=== PATIENT | male | born 1985 | race Caucasian/White ===

== ENCOUNTER 2022-06-16 17:45 | Inpatient (IN) | payer OTHER, SELFPAY ==
[2022-06-16 17:46] VITALS: BP 124/85; PULSE 90; RESP 16; TEMP 36.1; O2SAT 100; BMI 18.0
[2022-06-16 18:28] VITALS: BP 123/76; PULSE 83; RESP 14; TEMP 36.1; O2SAT 97
--- NOTE | 2022-06-16 18:33 | EX.ED.SAOD ---
HPI History of Present Illness Chief Complaint: Substance Abuse Informant: patient Narrative Narrative: Patient is here for substance abuse treatment/detox. He states he uses heroin/fentanyl. He does inject it. He last injected about 45 minutes ago. He has never had infectious complications. He drinks a fair amount but states he does not think he has any withdrawal symptoms or problems with the alcohol so much. He did go through detox a long time ago and had 7 years clean. He then went through a very rough divorce in 2019 and relapsed. He went through detox then and was clean for about 6 months. He has now been slowly using but his use is really increased in the last couple months. He states he uses almost a gram a day. He has no physical complaints. He denies any chronic medical conditions or chronic medications. PFSH PFS Medical History no medical history Social History Smoking Status: Current every day smoker tobacco type: cigarettes ROS ROS ED Constitutional Constitutional ED: Denies fever(s) or subjective Eyes Eyes: Denies change in vision ENT ENT ED: Denies rhinorrhea or sore throat Cardiovascular Cardiovascular: Denies palpitations Respiratory/Chest Respiratory/Chest: Denies cough Gastrointestinal Gastrointestinal: Denies nausea or vomiting Musculoskeletal Musculoskeletal: Denies myalgias Integumentary Denies rash Neurologic Neurologic: Denies headache(s) Hematologic/Lymphatic Hematologic/Lymphatic: Denies easy bleeding or easy bruising Allergic/Immunologic Allergic/Immunologic ED: Denies urticaria EXAM Physical Exam Narrative Exam Narrative: Patient is awake alert looks very calm and relaxed in bed. Carries on normal conversation. HEENT shows normal mucous membranes. Eyes show no icterus Lungs are clear bilaterally. Heart is regular. There is no murmur gallop rub or tachycardia. Abdomen soft nontender Extremities show no swelling. See below for skin exam. Skin does show injection sites much more on the right forearm than the left. He is right-handed though. None of these look infected but there is localized bruising. Const Vital Signs: 06/16/22 17:46 06/16/22 18:28 Temperature 97.0 F L 97 F L Temperature Source Temporal Temporal Pulse Rate 90 83 Respiratory Rate 16 14 Blood Pressure 124/85 H 123/76 H Blood Pressure Mean 98 91 Pulse Ox 100 97 Oxygen Delivery Method Room Air Room Air MDM MDM MDM Narrative Medical decision making narrative: Discussed case with hospitalist. With the patient's high use and success in the past we will admit him for detox. Discharge Plan Triage Chief Complaint: Substance Abuse ED Provider: Ronald Traylor Dx/Rx/DC Orders Primary Care Provider: NOT,DEFINED Referrals: NOT,DEFINED [Primary Care Provider] - Disposition Disposition: Acute Care Hospital [facility]
--- NOTE | 2022-06-16 18:50 | PCM.HP.STD ---
HPI - General General Date of Admission: 06/16/22 Date of Service: 06/16/22 Chief Complaint: Opiate detox HPI Narrative AGUSTIN SALCEDO, is a 36 M who presents to the emergency room at [facility] requesting services for opiate detox. Patient injects fentanyl daily, he has been using it since March of this year, before that he was clean for approximately a year, patient has been through detox twice, the first time was in 2003 and he stayed clean up his till 2020. Patient went through detox at that time and stayed clean until March of this year. Patient does not drink alcohol, he occasionally uses cocaine. Patient denies any chronic medical problems. No labs were performed in the emergency room. Patient will be admitted for acute opiate detox services and incipient opiate withdrawal, orders were entered using the addiction medical order set and opiate detox order set. Patient will be seen by addiction social service worker, plan will be crafted for his follow-up care after his hospitalization. [facility] Medical History no medical history Social History Smoking Status: Current every day smoker tobacco type: cigarettes ROS ROS Narrative Patient is alert, he does not appear anxious or nervous, he denies any withdrawal symptoms presently. Constitutional Constitutional: Denies anorexia, change in weight, fever(s), night sweats or weakness Eyes Eyes: Denies blurry vision, change in vision, discharge from eye(s) or eye pain Cardiovascular Cardiovascular: Denies chest pain, claudication, dyspnea on exertion, edema, palpitations or rapid heart rate Respiratory/Chest Respiratory/Chest: Denies cough, hemoptysis, productive cough, shortness of breath at rest or shortness of breath with exertion Gastrointestinal Gastrointestinal: Denies abdominal pain, constipation, diarrhea, dyspepsia, hematemesis, hematochezia, melena, nausea or vomiting Genitourinary Genitourinary: Denies dysuria, hematuria, urinary frequency, urinary hesitancy, urinary incontinence or urinary urgency Musculoskeletal Musculoskeletal: Denies back pain, joint pain, joint stiffness, joint swelling, myalgias or neck pain Neurologic Neurologic: Denies abnormal gait, abnormal speech, dizziness, focal weakness, headache(s), loss of vision, numbness, other visual disturbances, paresthesias, syncope or tingling Psychiatric Psychiatric: Denies anxiety, cognitive impairment, depression, irritability, mood swings or suicidal ideation Endocrine Endocrinology: Denies change in body appearance, cold intolerance, excessive sweating, heat intolerance, polydipsia or polyuria Hematologic/Lymphatic Hematologic/Lymphatic: Denies none, anemia, easy bleeding, easy bruising or lymphadenopathy Allergic/Immunologic Allergic/Immunologic: Denies rhinitis, urticaria, eczemia or asthma Vital Signs Vital Signs Vital Signs: 06/16/22 17:46 06/16/22 18:28 Temperature 97.0 F L 97 F L Temperature Source Temporal Temporal Pulse Rate 90 83 Respiratory Rate 16 14 Blood Pressure 124/85 H 123/76 H Blood Pressure Mean 98 91 Pulse Ox 100 97 Oxygen Delivery Method Room Air Room Air Weight Weight: 47.627 kg Body Mass Index (BMI) 18.0 Physical Exam Const alert, oriented x3, no apparent distress and healthy appearing Constitutional Narrative: Patient appears his stated age, he does not appear in any distress, he is alert and oriented x3 General Appearance: cooperative, well kempt and well developed Orientation / Consciousness: awake, oriented to person, oriented to place and oriented to time HEENT normocephalic, head/scalp atraumatic, hearing grossly normal bilaterally and moist oral mucous membranes Eyes PERRL, EOMs intact bilaterally and conjunctivae normal Neck supple, no JVD, thyroid normal and no carotid bruits General: trachea midline Resp normal respiratory effort, no retractions, no use of accessory muscles and clear to auscultation bilaterally Auscultation: Negative for rales, rhonchi or wheezes Cardio regular rate, regular rhythm, S1 normal heart sound, S2 normal heart sound, no murmurs, no rub, no gallops and no clicks GI normal to inspection, nondistended, normoactive bowel sounds, soft to palpation, non-tender and non-distended Extremity no clubbing, cyanosis or edema Skin Skin Narrative: Patient has track posada noted on both of his forearms, they do not appear to be infected there is no drainage from the areas. Neuro oriented x3, CN's II-XII intact bilaterally, no focal motor deficits and no sensory deficits noted Sensorium / Orientation: awake, alert, oriented to person, oriented to place and oriented to time Speech: speech normal Psych affect normal Assessment & Plan Assessment/Plan (1) Opiate addiction: PLAN: Plan 1. Opiate addiction-patient was admitted to Med[facility]urg 3, orders were placed using the addiction order sets, patient will be seen by addiction social service worker. #2 incipient opiate withdrawal-patient is not currently symptomatic, he will be started on Subutex when he develops symptoms Total clinical time spent by myself addressing the patient's medical issues, reviewing all of his data, and collaborating with patient's care team: 55 minutes Charges/Coding Visit Charges Inpatient E&M: 46423 Init Hosp L2
[2022-06-16 19:26] VITALS: BMI 16.9
[2022-06-16 19:34] VITALS: BP 115/85; PULSE 59; RESP 16; TEMP 36.7; O2SAT 100
[2022-06-17 02:38] VITALS: BP 95/65; PULSE 53; RESP 16; TEMP 36.8; O2SAT 96
[2022-06-17 08:30] VITALS: BP 105/60; PULSE 81; RESP 18; TEMP 36.8; O2SAT 97
[2022-06-17 10:05] VITALS: BP 120/83; PULSE 80; RESP 16; TEMP 37.2; O2SAT 99
--- NOTE | 2022-06-17 10:51 | ADDICTION ---
This life underwriter attempted to meet with client, who was sleeping at this time. Client did not wake easily. Chart reviewed, client was admitted 06/16/22 in the evening for Opiate detox. [facility] paperwork will need to be completed.
[2022-06-17] MEDS: Ensure Plus High Protein 120 ML LIQUID PO ×3 (11:26→22:13)
[2022-06-17] MEDS: Buprenorphine HCl 2 MG TAB.SUBL SL ×2 (11:26→18:32)
--- NOTE | 2022-06-17 14:18 | PN.HOSP_ITS ---
Reason for Visit Reason for Visit: Diagnoses Opioid dependence, uncomplicated (06/16/22) Subjective Subjective Patient was seen and examined today, he is complaining of little bit of anxiety but otherwise is doing well. Objective Data Objective Data Vital Signs: Vital Signs Temp Pulse Resp BP Pulse Ox O2 Del Method 98.3 F 81 18 105/60 97 Room Air 06/17/22 08:30 06/17/22 08:30 06/17/22 08:30 06/17/22 08:30 06/17/22 08:30 06/17/22 08:30 Oxygen Delivery Method Room Air Weight: 44.906 kg Body Mass Index (BMI) 16.9 Intake & Output: Intake and Output for Last 24 Hours 06/15/22 06/16/22 06/17/22 23:59 23:59 23:59 Intake Total 250 / 250 150 / 150 Balance 250 / 250 150 / 150 Physical Exam Const alert, oriented x3, no apparent distress and average body habitus General Appearance: cooperative, well kempt and well developed Orientation / Consciousness: awake, oriented to person, oriented to place and or iented to time HEENT normocephalic, head/scalp atraumatic and moist oral mucous membranes Eyes PERRL, EOMs intact bilaterally and conjunctivae normal Neck supple, no JVD, thyroid normal and no carotid bruits General: trachea midline Resp normal respiratory effort, no retractions, no use of accessory muscles and clear to auscultation bilaterally Auscultation: Negative for rales, rhonchi or wheezes Cardio regular rate, regular rhythm, S1 normal heart sound, S2 normal heart sound, no murmurs, no rub and no gallops GI normal to inspection, nondistended, normoactive bowel sounds, soft to palpation, non-tender and non-distended Extremity no clubbing, cyanosis or edema Skin no rashes or lesions noted General Skin Exam: no breakdown Neuro oriented x3, CN's II-XII intact bilaterally, moves all extremities, no focal motor deficits and no sensory deficits noted Sensorium / Orientation: awake, alert, oriented to person, oriented to place and oriented to time Speech: speech normal Psych affect normal Assessment & Plan Assessment/Plan (1) Opiate addiction: PLAN: Plan 1. Opiate addiction-continue with present detox orders including Subutex #2 opiate withdrawal-patient is currently on Subutex Total clinical time spent by myself addressing the patient's medical issues, reviewing all of his data, and collaborating with patient's care team: 25 minutes Charges/Coding Visit Charges Inpatient E&M: [id number] [facility] Hosp L1
[2022-06-17 14:39] VITALS: BP 112/65; PULSE 79; RESP 16; TEMP 36.7; O2SAT 100
[2022-06-17] MEDS: Gabapentin 300 MG Capsule PO (18:31)
[2022-06-17] MEDS: Dicyclomine 10 MG Capsule 20 MG PO (18:31)
[2022-06-17] MEDS: traZODone 100 MG Tablet PO (22:13)
[2022-06-17] MEDS: hydrOXYzine PAM 25 MG Capsule 50 MG PO (22:13)
[2022-06-18 03:20] VITALS: BP 132/81; PULSE 86; RESP 12; TEMP 37.2; O2SAT 96
[2022-06-18] MEDS: Buprenorphine HCl 2 MG TAB.SUBL SL ×3 (03:25→19:50)
[2022-06-18 09:20] VITALS: BP 110/67; PULSE 60; RESP 16; TEMP 36.2; O2SAT 100
[2022-06-18] MEDS: Ensure Plus High Protein 120 ML LIQUID PO ×2 (10:54→17:20)
[2022-06-18 16:00] VITALS: BP 121/72; PULSE 70; RESP 16; TEMP 36.7; O2SAT 98
[2022-06-18] MEDS: cloNIDine HCl 0.1 MG Tablet PO (17:20)
[2022-06-18] MEDS: Ondansetron 8 MG Tablet PO (17:20)
--- NOTE | 2022-06-18 17:50 | PN.HOSP_ITS ---
Reason for Visit Reason for Visit: Diagnoses Opioid dependence, uncomplicated (06/16/22) Subjective Subjective Patient was seen and examined today, he does not complain of any anxiety or tremor today. Objective Data Objective Data Vital Signs: Vital Signs Temp Pulse Resp BP Pulse Ox O2 Del Method 98.0 F 70 16 121/72 H 98 Room Air 06/18/22 16:00 06/18/22 16:00 06/18/22 16:00 06/18/22 16:00 06/18/22 16:00 06/18/22 16:00 Oxygen Delivery Method Room Air Weight: 44.9 kg Body Mass Index (BMI) 16.9 Intake & Output: Intake and Output for Last 24 Hours 06/16/22 06/17/22 06/18/22 23:59 23:59 23:59 Intake Total 250 / 250 150 / 150 Balance 250 / 250 150 / 150 Medical Nutrition Assessment Dietitian: Malnutrition Criteria Met Start: 06/17/22 14:24 Freq: Status: Active Protocol: Document 06/17/22 14:24 RMA (Rec: 06/17/22 14:24 RMA [id number]) Nutrition Malnutrition Evidence of Malnutrition Exists Yes Malnutrition (severe): Social/Behavioral/ Environmental Evidenced By Suboptimal Energy Intake ( Severe),Weight Loss (Severe) Clinical Problem Chronic Disease or Condition Related Malnutrition Etiology Severe protein-calorie malnutrition in the context of social circumstance related to inadequate oral intake and drug abuse Signs/Symptoms as evidenced by BMI 17.0, PO meeting less than 50% estimated nutrition needs x past 1 year and unintentional weight loss~18% x past 1 year Status Active Problem Recommendation Dietitian Recommendations/Changes Continue regular diet with multiple snacks daily as tolerated. Will increase 120 ml ensure plus high protein from 3 to 4 times per day w/ medpass. Will add extra 1-2 oz meat/ protein Q meal tray. Monitor labs as available; none to asses this day. Physical Exam Const alert, oriented x3, no apparent distress and healthy appearing General Appearance: cooperative, well kempt and well developed Orientation / Consciousness: awake, oriented to person, oriented to place and oriented to time HEENT normocephalic and moist oral mucous membranes Eyes PERRL, EOMs intact bilaterally and conjunctivae normal Neck supple, no JVD, thyroid normal and no carotid bruits General: trachea midline Resp normal respiratory effort and clear to auscultation bilaterally Auscultation: Negative for rales, rhonchi or wheezes Cardio regular rate, regular rhythm, no murmurs, no rub and no gallops GI normal to inspection, nondistended, normoactive bowel sounds, soft to palpation, non-tender and non-distended Extremity no clubbing, cyanosis or edema Skin no rashes or lesions noted General Skin Exam: no breakdown Neuro oriented x3, CN's II-XII intact bilaterally, no focal motor deficits and no sensory deficits noted Sensorium / Orientation: awake and alert Speech: speech normal Psych affect normal Assessment & Plan Assessment/Plan (1) Opiate addiction: PLAN: Plan 1. Opiate addiction-continue with present detox orders including Subutex #2 opiate withdrawal-patient is currently on Subutex Total clinical time spent by myself addressing the patient's medical issues, reviewing all of his data, and collaborating with patient's care team: 25 minutes Charges/Coding Visit Charges Inpatient E&M: 82166 [facility] Hosp L1
[2022-06-18] MEDS: hydrOXYzine PAM 25 MG Capsule 50 MG PO (19:50)
[2022-06-18 19:53] VITALS: BP 99/58; PULSE 65; RESP 16; TEMP 37; O2SAT 96
[2022-06-19] MEDS: Buprenorphine HCl 2 MG TAB.SUBL SL ×2 (02:51→11:02)
[2022-06-19 02:55] VITALS: BP 110/60; PULSE 63; RESP 16; TEMP 36.5; O2SAT 98
[2022-06-19 09:00] VITALS: BP 104/68; PULSE 73; RESP 18; TEMP 36.6; O2SAT 100
--- NOTE | 2022-06-19 09:26 | NURSING ---
pt willing and waiting to talk to 180
--- NOTE | 2022-06-19 10:28 | ADDICTION ---
Addictions therapist met with Pt to complete assessments and discuss d/c planning. Pt plans to follow up with [facility] in [place] for outpatient treatment and MAT. He reports that he does not need transportation assistance.
--- NOTE | 2022-06-19 11:49 | DCINST_ITS ---
Discharge Instructions Diet Discharge Diet: No restrictions Activity Discharge Activity: Return to Normal Activity Weight Bearing Status: Full weight bearing Follow Up Care Test Results: Test results from this visit will be discussed in further detail at your follow- up appointment, if applicable. Discharge Plan Admission Admit Date/Time: 06/16/22 18:33 Primary Reason for Your Visit: opiate withdrawal Attending Provider: Gareth Malloy Primary Care Provider: NOT,DEFINED Instructions Additional Instructions / Restrictions: Follow-up with 180 as directed Discharge Orders/Prescriptions Prescriptions: No Action NK Referrals / Follow Up: NOT,DEFINED [Primary Care Provider] - Disposition Disposition (needs filled in before D/C Order can be placed): Home, Self Care
--- NOTE | 2022-06-19 11:51 | DS.PCM_ITS ---
Providers Date of Admission: 06/16/22 Date of Discharge: 06/19/22 Primary Care Physician: NOT DEFINED Reason For Visit: OPIATE DETOX Diagnosis Discharge Diagnosis (1) Opiate addiction: Status: Acute Code(s): F11.20 - Opioid dependence, uncomplicated Plan 1. Opiate addiction-continue with present detox orders including Subutex #2 opiate withdrawal-patient is currently on Subutex Total clinical time spent by myself addressing the patient's medical issues, reviewing all of his data, and collaborating with patient's care team: 25 minutes Medications at Discharge Home Medications NK 06/16/22 Hospital Course Operations None Procedures None Summary of Care Provided Minutes Spent on Discharge: 30 Hospital Course: This 36-year-old white male was seen in the emergency room at [facility] desiring services for detox from IV fentanyl addiction. Patient had been through detox twice before in the past, he has been using on a continuous basis since last March 2022. Patient was admitted to [place] [address], orders were entered using the addiction order sets, and the patient had no untoward events during his hospitalization. He met with addiction social professionals and performed a plan to follow-up as an outpatient. On 06/19/2022, patient was seen and examined: On examination he appeared in good health and spirits. Vital signs as documented. Skin warm and dry and without overt rashes. Neck without JVD, neck was supple, trachea midline, thyroid was normal. Lungs clear bilaterally, normal air movement was noted. Heart exam notable for regular rhythm, normal sounds and absence of murmurs, rubs or gallops. Abdomen unremarkable and without evidence of organomegaly, masses, or abdominal aortic enlargement. Bowel sounds are present, abdomen is not distended. Extremities nonedematous, no cyanosis was noted, no clubbing was noted. Neuro: Cranial nerves II through XII are grossly intact, no focal motor deficits were noted, sensation to light touch and pinprick intact, motor exam 5/5 throughout. Psych: Patient is alert and oriented x3, he does not appear anxious or depressed, he does not appear agitated. Patient appears stable for discharge home on 06/19/2022. Medical Records Data Medical Nutrition Assessment Dietitian: Malnutrition Criteria Met Start: 06/17/22 14:24 Freq: Status: Active Protocol: Document 06/17/22 14:24 RMA (Rec: 06/17/22 14:24 [facility] [id number]) Nutrition Malnutrition Evidence of Malnutrition Exists Yes Malnutrition (severe): Social/Behavioral/ Environmental Evidenced By Suboptimal Energy Intake ( Severe),Weight Loss (Severe) Clinical Problem Chronic Disease or Condition Related Malnutrition Etiology Severe protein-calorie malnutrition in the context of social circumstance related to inadequate oral intake and drug abuse Signs/Symptoms as evidenced by BMI 17.0, PO meeting less than 50% estimated nutrition needs x past 1 year and unintentional weight loss~18% x past 1 year Status Active Problem Recommendation Dietitian Recommendations/Changes Continue regular diet with multiple snacks daily as tolerated. Will increase 120 ml ensure plus high protein from 3 to 4 times per day w/ medpass. Will add extra 1-2 oz meat/ protein Q meal tray. Monitor labs as available; none to asses this day. Weight / BMI Weight Weight: 44.9 kg Body Mass Index (BMI) 16.9 D/C Instructions Discharge Diet: No restrictions Weight Bearing Status: Full weight bearing Meaningful Use Info Meaningful Use Diagnoses (Choose all that apply): None applicable Discharge Plan Admission Admit Date/Time: 06/16/22 18:33 Primary Reason for Your Visit: opiate withdrawal Attending Provider: Gareth Malloy Primary Care Provider: NOT,DEFINED Instructions Additional Instructions / Restrictions: follow up w/ out patient [facility] addiction medicine therapy as discussed w/ counselor/dr at [facility] Discharge Orders/Prescriptions Prescriptions: No Action NK Referrals / Follow Up: NOT,DEFINED [Primary Care Provider] - Disposition Disposition (needs filled in before D/C Order can be placed): Home, Self Care Charges/Coding Visit Charges Inpatient E&M: [id number] Disch Hosp
== END 2022-06-19 11:56 | disposition home or self-care (01) | DRG 896 ==
LOC: ED 18:33 → MS3 18:35
PROVIDERS: Admitting Provider Internal Medicine; Emergency Provider Emergency Medicine; Visit Provider Internal Medicine
DX: F11.23 Opioid dependence with withdrawal (principal); E43 Unspecified severe protein-calorie malnutrition; Z68.1 Body mass index [BMI] 19.9 or less, adult; F17.210 Nicotine dependence, cigarettes, uncomplicated
CPT/HCPCS: 97802; 99283